=== PATIENT | female | born 1960 | race Caucasian/White ===

== ENCOUNTER 2017-09-04 23:55 | Emergency (ER) | payer BC, MEDICAID, OTHER ==
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
[2017-09-05 00:41] LABS: CHLORIDE,CL 105 mmol/L (98-110); SODIUM,NA 141 mmol/L (136-146)
[2017-09-05 07:45] VITALS: BP 155/91
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
== END 2017-09-05 01:36 | disposition home or self-care (01) ==
LOC: MW.ED 23:55
DX: S00.03XA Contusion of scalp, initial encounter (principal); S60.021A Contusion of right index finger without damage to nail, initial encounter; E05.90 Thyrotoxicosis, unspecified without thyrotoxic crisis or storm; Z88.2 Allergy status to sulfonamides; Z91.012 Allergy to eggs; Z79.899 Other long term (current) drug therapy; V69.9XXA Occupant (driver) (passenger) of heavy transport vehicle injured in unspecified traffic accident, initial encounter
CPT/HCPCS: 70450; 71045; 72100; 72125; 73120; 80053; 85025; 99284; G0480

== ENCOUNTER 2019-01-06 10:14 | Emergency (ER) | payer SELFPAY ==
[2019-01-06] MEDS ORDERED: cefTRIAXone 1 GM Vial IM ONE (10:21)
[2019-01-06] MEDS ORDERED: Diphtheria,Pertussis(Acell),Tetanus Vaccine 0.5 ML Syringe IM ONE (10:24)
[2019-01-06] MEDS ORDERED: Lidocaine 1% 10 ML MDV INJECT ONE (10:35)
[2019-01-06] MEDS ORDERED: Lidocaine 1% 2 ML ONE (10:39)
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
[2019-01-06 12:25] VITALS: BP 137/89
== END 2019-01-06 12:25 | disposition home or self-care (01) ==
LOC: MW.ED 10:14
DX: S61.451A Open bite of right hand, initial encounter (principal); S61.253A Open bite of left middle finger without damage to nail, initial encounter; S81.852A Open bite, left lower leg, initial encounter; W54.0XXA Bitten by dog, initial encounter; Z23 Encounter for immunization
CPT/HCPCS: 12004; 90471; 90715; 96372; 99283; J0696; J2001